=== PATIENT | female | born 1950 | race Caucasian/White ===

== ENCOUNTER → 2016-11-20 | Outpatient (CLI) | payer MEDICARE, OTHER | LOC: SLEEP 08:50 | DX: G47.33 Obstructive sleep apnea (adult) (pediatric) (principal); J41.0 Simple chronic bronchitis; J43.2 Centrilobular emphysema; E66.9 Obesity, unspecified | CPT/HCPCS: 95810 ==

== ENCOUNTER → 2020-10-27 | Outpatient (CLI) | payer MEDICARE, OTHER ==
[~2020-10-27] MED LIST: ADVAIR HFA 230/1 INH INH; AMIODARONE HCL400 MG PO; AUGMENTIN 875-1 EACH PO; COREG6.25 MG PO; ECOTRIN81 MG PO; FLEXERIL 10 MG10 MG PO; INCRUSE ELLI62.5 MCG INH; LASIX20 MG PO; NORCO 7.5-3251 EACH PO; PROBIOTIC1 EAC1 PO; VALIUM 10 MG TA10 MG PO; VITAMIN C 500500 MG PO; ZANTAC 150 MG150 MG PO
== END ==
LOC: WCC 13:00
DX: L97.212 Non-pressure chronic ulcer of right calf with fat layer exposed (principal); S81.801D Unspecified open wound, right lower leg, subsequent encounter; I50.32 Chronic diastolic (congestive) heart failure; R60.0 Localized edema; J44.9 Chronic obstructive pulmonary disease, unspecified; E66.01 Morbid (severe) obesity due to excess calories; R54 Age-related physical debility; Z68.31 Body mass index [BMI] 31.0-31.9, adult; Z88.1 Allergy status to other antibiotic agents; Z79.891 Long term (current) use of opiate analgesic; Z79.2 Long term (current) use of antibiotics; X58.XXXD Exposure to other specified factors, subsequent encounter
CPT/HCPCS: 87070; 87077; 87186; 87205; G0463

== ENCOUNTER → 2020-11-03 | Outpatient (CLI) | payer MEDICARE, OTHER | LOC: WCC 14:00 | DX: L97.212 Non-pressure chronic ulcer of right calf with fat layer exposed (principal); S81.801A Unspecified open wound, right lower leg, initial encounter; I50.32 Chronic diastolic (congestive) heart failure; R60.0 Localized edema; J44.9 Chronic obstructive pulmonary disease, unspecified; E66.01 Morbid (severe) obesity due to excess calories; R54 Age-related physical debility; Z68.31 Body mass index [BMI] 31.0-31.9, adult; Z88.1 Allergy status to other antibiotic agents; Z79.891 Long term (current) use of opiate analgesic; Z79.2 Long term (current) use of antibiotics; Z79.899 Other long term (current) drug therapy; X58.XXXA Exposure to other specified factors, initial encounter ==

== ENCOUNTER → 2020-11-10 | Outpatient (CLI) | payer MEDICARE, OTHER | LOC: WCC 14:00 | DX: L97.812 Non-pressure chronic ulcer of other part of right lower leg with fat layer exposed (principal); I50.32 Chronic diastolic (congestive) heart failure; R60.9 Edema, unspecified; J44.9 Chronic obstructive pulmonary disease, unspecified; E66.01 Morbid (severe) obesity due to excess calories; Z68.31 Body mass index [BMI] 31.0-31.9, adult; R53.81 Other malaise ==

== ENCOUNTER → 2020-11-17 | Outpatient (CLI) | payer MEDICARE, OTHER | LOC: WCC 13:41 | DX: L97.812 Non-pressure chronic ulcer of other part of right lower leg with fat layer exposed (principal); I50.32 Chronic diastolic (congestive) heart failure; R60.0 Localized edema; J44.9 Chronic obstructive pulmonary disease, unspecified; E66.01 Morbid (severe) obesity due to excess calories; Z68.31 Body mass index [BMI] 31.0-31.9, adult; R53.81 Other malaise ==

== ENCOUNTER → 2020-11-24 | Outpatient (CLI) | payer MEDICARE, OTHER | LOC: WCC 13:52 | DX: L97.212 Non-pressure chronic ulcer of right calf with fat layer exposed (principal); I50.32 Chronic diastolic (congestive) heart failure; J44.9 Chronic obstructive pulmonary disease, unspecified; E66.01 Morbid (severe) obesity due to excess calories; R60.0 Localized edema; R54 Age-related physical debility; Z68.31 Body mass index [BMI] 31.0-31.9, adult; Z88.1 Allergy status to other antibiotic agents; Z79.891 Long term (current) use of opiate analgesic; Z79.899 Other long term (current) drug therapy ==

== ENCOUNTER → 2020-12-02 | Outpatient (CLI) | payer MEDICARE, OTHER | LOC: WCC 14:15 | DX: L97.212 Non-pressure chronic ulcer of right calf with fat layer exposed (principal); I50.32 Chronic diastolic (congestive) heart failure; R60.0 Localized edema; J44.9 Chronic obstructive pulmonary disease, unspecified; E66.01 Morbid (severe) obesity due to excess calories; R54 Age-related physical debility; Z68.31 Body mass index [BMI] 31.0-31.9, adult; Z88.1 Allergy status to other antibiotic agents; Z79.891 Long term (current) use of opiate analgesic; Z79.899 Other long term (current) drug therapy ==

== ENCOUNTER → 2020-12-08 | Outpatient (CLI) | payer MEDICARE, OTHER | LOC: WCC 14:04 | DX: L97.212 Non-pressure chronic ulcer of right calf with fat layer exposed (principal); I50.32 Chronic diastolic (congestive) heart failure; R60.0 Localized edema; J44.9 Chronic obstructive pulmonary disease, unspecified; E66.01 Morbid (severe) obesity due to excess calories; R54 Age-related physical debility ==

== ENCOUNTER → 2020-12-22 | Outpatient (CLI) | payer MEDICARE, OTHER | LOC: WCC 10:09 | DX: L97.812 Non-pressure chronic ulcer of other part of right lower leg with fat layer exposed (principal); I50.32 Chronic diastolic (congestive) heart failure; R60.0 Localized edema; J44.9 Chronic obstructive pulmonary disease, unspecified; E66.01 Morbid (severe) obesity due to excess calories; R54 Age-related physical debility; Z88.1 Allergy status to other antibiotic agents ==

== ENCOUNTER → 2020-12-29 | Outpatient (CLI) | payer MEDICARE, OTHER | LOC: WCC 14:30 | DX: L97.212 Non-pressure chronic ulcer of right calf with fat layer exposed (principal); I50.32 Chronic diastolic (congestive) heart failure; R60.0 Localized edema; J44.9 Chronic obstructive pulmonary disease, unspecified; E66.01 Morbid (severe) obesity due to excess calories; R54 Age-related physical debility; Z88.1 Allergy status to other antibiotic agents ==

== ENCOUNTER → 2021-01-05 | Outpatient (CLI) | payer MEDICARE, OTHER | LOC: WCC 14:30 | DX: L97.812 Non-pressure chronic ulcer of other part of right lower leg with fat layer exposed (principal); I50.32 Chronic diastolic (congestive) heart failure; R60.0 Localized edema; J44.9 Chronic obstructive pulmonary disease, unspecified; E66.01 Morbid (severe) obesity due to excess calories; Z68.31 Body mass index [BMI] 31.0-31.9, adult; R54 Age-related physical debility ==

== ENCOUNTER → 2021-01-12 | Outpatient (CLI) | payer MEDICARE, OTHER | LOC: WCC 14:15 | DX: L97.812 Non-pressure chronic ulcer of other part of right lower leg with fat layer exposed (principal); I50.32 Chronic diastolic (congestive) heart failure; R60.0 Localized edema; J44.9 Chronic obstructive pulmonary disease, unspecified; E66.01 Morbid (severe) obesity due to excess calories; R54 Age-related physical debility; Z79.51 Long term (current) use of inhaled steroids; Z79.899 Other long term (current) drug therapy; Z79.891 Long term (current) use of opiate analgesic; Z68.31 Body mass index [BMI] 31.0-31.9, adult | CPT/HCPCS: 97597 ==